=== PATIENT | female | born 1940 | race Caucasian/White ===

== ENCOUNTER 2022-07-12 16:22 | Emergency (ER) | payer OTHER ==
[~2022-07-12] VITALS: Ht 157.5 cm; Wt 64.4 kg
[~2022-07-12 16:22] MED LIST: ADVAIR 2501 DISK W/1 IH; CALAN SR 120MG120 MG PO; CRESTOR20 MG PO; FLONASE16 GM NS; HYDROCHLOROTHIA25 MG PO; SINGULAIR10 MG PO; VASOTEC10 MG NGT
[2022-07-12] MEDS ORDERED: METFORMIN HCL500 M2 PO (18:10)
[2022-07-12] MEDS ORDERED: AEROECLIPSE II1 EACH MC (18:10)
[2022-07-12] MEDS ORDERED: ATORVASTATIN CA10 MG PO (18:11)
[2022-07-12] MEDS ORDERED: CARDIZEM60 MG PO (18:11)
[2022-07-12] MEDS ORDERED: FLINTSTONES CO1 EAC1 PO (18:11)
[2022-07-12] MEDS ORDERED: XOPENEX0.63 MG/3 IH (18:11)
[2022-07-12] MEDS ORDERED: SINGULAIR10 MG PO (18:11)
[2022-07-12] MEDS ORDERED: ATIVAN1 M1 PO (18:11)
[2022-07-12] MEDS ORDERED: HYDROCHLOROTH12.5 MG PO (18:12)
== END 2022-07-12 22:38 | disposition home or self-care (01) ==
LOC: ER 16:22
DX: E87.1 Hypo-osmolality and hyponatremia (principal); E11.9 Type 2 diabetes mellitus without complications; Z79.84 Long term (current) use of oral hypoglycemic drugs; I10 Essential (primary) hypertension

== ENCOUNTER 2023-12-02 09:29 | Outpatient (CLI) | payer OTHER ==
[~2023-12-02 09:29] MED LIST changes: +AEROECLIPSE II1 EACH MC; +ATIVAN1 M1 PO; +ATORVASTATIN CA10 MG PO; +CARDIZEM60 MG PO; +FLINTSTONES CO1 EAC1 PO; +HYDROCHLOROTH12.5 MG PO; +METFORMIN HCL500 M2 PO; +XOPENEX0.63 MG/3 IH
== END 2023-12-02 09:34 | disposition home or self-care (01) ==
LOC: RAD → EDBD 09:29 → RAD 09:34
PROVIDERS: ATTEND Internal Medicine Cardiovascular Disease
DX: I10 Essential (primary) hypertension (principal); I50.32 Chronic diastolic (congestive) heart failure